=== PATIENT | male | born 1980 | race Caucasian/White ===

== ENCOUNTER 2017-01-18 11:25 | Emergency (ER) | payer OTHER ==
[~2017-01-18] VITALS: Ht 175.3 cm; Wt 104.5 kg
[2017-01-18 12:08] VITALS: BP 141/87
[2017-01-18] MEDS ORDERED: NACL 0.9% 1,000 ML IV SCH (17:33)
[2017-01-18] MEDS ORDERED: NACL 0.9% 1,000 ML IV ONE (17:35)
[2017-01-18] MEDS ORDERED: MORPHINE SULFATE 4 MG/ML SYR IVP ONE (17:35)
[2017-01-18] MEDS ORDERED: FAMOTIDINE 20 MG/2 ML VIAL IVP ONE (17:35)
[2017-01-18] MEDS ORDERED: ONDANSETRON 4 MG/2 ML VIAL IVP ONE (17:35)
--- NOTE | 2017-01-18 18:01 | NUR ---
36/M TO ED WITH C/O N/V/D STARTING THIS MORNING. PT STATES HE HAS A HEADACHE WITH PAIN 2/10. BOWEL SOUNDS PRESENT X4Q. LUNGS CLEAR BILAT. HR EVEN AND REGULAR. AAOX4. VSS. NO SIGNS OF DISTRESS.
--- NOTE | 2017-01-18 18:44 | NUR ---
Patient appears to be resting comfortably in bed. Vital Signs within normal limits. Respirations even and unlabored.
--- NOTE | 2017-01-18 19:30 | NUR ---
Patient discharged with v/s stable. Written and verbal after care instructions given and explained. Patient alert, oriented and verbalized understanding of instructions. Ambulatory with steady gait. All questions addressed prior to discharge. ID band removed. Patient advised to follow up with PMD. Rx of ZOFRAN 4 MG, TYLENOL NO.3 given. Patient educated on indication of medication including possible reaction and side effects. Opportunity to ask questions provided and answered.
[2017-01-18 19:36] VITALS: BP 133/97
== END 2017-01-18 19:30 | disposition home or self-care (01) ==
LOC: MED 11:25
DX: E11.43 Type 2 diabetes mellitus with diabetic autonomic (poly)neuropathy (principal); K31.84 Gastroparesis
CPT/HCPCS: 36415; 80053; 82150; 82948; 83690; 85025; 93005; 96361; 96374; 96375; 99285; G0482; J2270; J2405; J3490; J7030